=== PATIENT | female | born 1955 | race Caucasian/White ===

== ENCOUNTER 2022-06-15 07:08 | Day surgery (SDC) | payer MEDICARE ==
[2022-06-14 11:30] VITALS: BMI 28.1
[2022-06-15] MEDS ORDERED: Lidocaine 1% (PF) 30 ML VIAL ONE (07:43)
[2022-06-15] MEDS ORDERED: EPINEPHrine 1 MG/ML AMP ONE (07:43)
== END 2022-06-15 10:35 | disposition home or self-care (01) ==
LOC: SDC 07:08
PROVIDERS: ATTEND Internal Medicine Cardiovascular Disease
PROC: 0JPT32Z Removal of Monitoring Device from Trunk Subcutaneous Tissue and Fascia, Percutaneous Approach (ICD-10-PCS; principal; 2022-06-15)
DX: Z45.09 Encounter for adjustment and management of other cardiac device (principal); I48.0 Paroxysmal atrial fibrillation; I10 Essential (primary) hypertension; E78.5 Hyperlipidemia, unspecified; Z86.73 Personal history of transient ischemic attack (TIA), and cerebral infarction without residual deficits; Z79.899 Other long term (current) drug therapy
CPT/HCPCS: 33286; J0171; J2001

== ENCOUNTER 2023-07-10 10:07 | Outpatient (CLI) | payer MEDICARE | END 2023-07-10 10:08 | disposition home or self-care (01) | LOC: SCSMRI 10:07 | PROVIDERS: ATTEND Psychiatry & Neurology Neurology | DX: R25.1 Tremor, unspecified (principal) | CPT/HCPCS: 70553 ==